=== PATIENT | female | born 1945 | race Caucasian/White ===

== ENCOUNTER → 2016-11-23 | Outpatient (CLI) | payer OTHER ==
[~2016-11-23] MED LIST: ASPI81TA28 PO; ENAL10TA88 PO; GLUC500C4 PO; HYDR25TA4 PO; METF1TAB85 PO; OMEGCAP2 PO
[2016-11-23 12:44] LABS: BASO % 0.1 %; BASO ABS # 0.01 K/uL (0-0.2); COMPLETE YES; EOS % 1.8 %; HEMATOCRIT 41.4 % (37-47); IG% 0.2 %; LYMPH % 22.9 %; LYMPH ABS # 1.96 K/uL (1.2-3.4); MEAN CELL VOLUME 89.4 fL (80-100); MEAN CORPUSCULAR HEMOGLOBIN 28.7 pg (25-34); MEAN CORPUSCULAR HGB CONC 32.1 g/dl (32-36); MEAN PLATELET VOLUME 11.1 fL (7.4-10.4); MONO % 3.5 %; NEUT % 71.5 %; PLATELET COUNT 250 K/uL (130-400); RED BLOOD COUNT 4.63 M/uL (4.2-5.4); WHITE BLOOD COUNT 8.55 K/uL (4.8-10.8)
[2016-11-23 12:57] LABS: ALT/SGPT 26 U/L (12-78); BLOOD UREA NITROGEN 19 mg/dl (7-18); BUN/CREATININE RATIO 19.5 (10-20); CARBON DIOXIDE 33 mmol/L (21-32); CHLORIDE 100 mmol/L (98-107); CHOLESTEROL 209 mg/dl (0-200); CREATININE 0.99 mg/dl (0.60-1.20); GLUCOSE 142 mg/dl (70-99); POTASSIUM 3.8 mmol/L (3.5-5.1); SODIUM 139 mmol/L (136-145); TRIGLYCERIDES 109 mg/dl (0-150); VERY LOW DENSITY LIPOPROT CALC 22 mg/dl
[2016-11-23 13:02] LABS: CALCIUM 9.3 mg/dl (8.5-10.1)
[2016-11-23 13:07] LABS: ALB/GLOB RATIO 0.6 (0.9-2); ALKALINE PHOSPHATASE 72 U/L (45-117); AST/SGOT 18 U/L (15-37); CHOLESTEROL/HDL RATIO 5.4; HDL CHOLESTEROL 39 mg/dl; LDL CHOLESTEROL CALCULATED 148 mg/dl
[2016-11-23 13:12] LABS: ESTIMATED AVERAGE GLUCOSE 163 mg/dl; HA1C FLAG Normal (Normal)
[2016-11-23 13:27] LABS: RATIO 7.1 mcg/mg (0-30.0)
== END ==
LOC: C.LAB1850 10:35
PROVIDERS: ATTEND Internal Medicine
DX: E11.9 Type 2 diabetes mellitus without complications (principal); E78.5 Hyperlipidemia, unspecified; I10 Essential (primary) hypertension

== ENCOUNTER → 2017-05-22 | Outpatient (CLI) | payer OTHER ==
[2017-05-22 12:21] LABS: ESTIMATED AVERAGE GLUCOSE 151 mg/dl; HA1C FLAG Normal (Normal)
[2017-05-22 12:50] LABS: ALT/SGPT 28 U/L (12-78); AST/SGOT 17 U/L (15-37); BLOOD UREA NITROGEN 26 mg/dl (7-18); BUN/CREATININE RATIO 26.1 (10-20); CALCIUM 9.3 mg/dl (8.5-10.1); CARBON DIOXIDE 32 mmol/L (21-32); CHLORIDE 97 mmol/L (98-107); CHOLESTEROL 215 mg/dl (0-200); CREATININE 0.99 mg/dl (0.60-1.20); GLUCOSE 141 mg/dl (70-99); POTASSIUM 3.7 mmol/L (3.5-5.1); SODIUM 135 mmol/L (136-145)
[2017-05-22 12:55] LABS: ALB/GLOB RATIO 0.6 (0.9-2); ALKALINE PHOSPHATASE 74 U/L (45-117); CHOLESTEROL/HDL RATIO 4.8; HDL CHOLESTEROL 45 mg/dl; LDL CHOLESTEROL CALCULATED 149 mg/dl; TRIGLYCERIDES 104 mg/dl (0-150); VERY LOW DENSITY LIPOPROT CALC 21 mg/dl
== END | disposition home or self-care (01) ==
LOC: C.LAB1850 10:57
PROVIDERS: ATTEND Internal Medicine
DX: E11.9 Type 2 diabetes mellitus without complications (principal); E78.5 Hyperlipidemia, unspecified